=== PATIENT | male | born 1965 | race Caucasian/White ===

== ENCOUNTER 2019-01-31 08:10 | Emergency (ER) | payer BC ==
[~2019-01-31] VITALS: Ht 175.3 cm; Wt 84.0 kg
[2019-01-31] MEDS ORDERED: ketorolac trometh inj. 60 MG/2 ML VIAL IM ONE (08:15)
[2019-01-31] MEDS ORDERED: NAPR-56 PO (08:18)
[2019-01-31] MEDS ORDERED: CYCL-1 PO (08:18)
[2019-01-31 08:38] VITALS: BP 184/100
== END 2019-01-31 08:39 | disposition home or self-care (01) ==
LOC: ER 08:10
DX: S46.811A Strain of other muscles, fascia and tendons at shoulder and upper arm level, right arm, initial encounter (principal); M62.838 Other muscle spasm; F17.200 Nicotine dependence, unspecified, uncomplicated; Z79.899 Other long term (current) drug therapy; X58.XXXA Exposure to other specified factors, initial encounter; Y93.89 Activity, other specified; Y92.89 Other specified places as the place of occurrence of the external cause; Y99.8 Other external cause status
CPT/HCPCS: 96372; 99283; J1885

== ENCOUNTER 2019-02-21 07:22 | Emergency (ER) | payer BC ==
[~2019-02-21] VITALS: Ht 175.3 cm; Wt 81.8 kg
[~2019-02-21 07:22] MED LIST: CYCL-1 PO; NAPR-56 PO
[2019-02-21] MEDS ORDERED: LIDOcaine 1% w/EPI 1:200,000 injection 10mL vial IM ONE (07:45)
[2019-02-21] MEDS ORDERED: LIDOcaine 1% W/epiNEPHrine 1:200,000 10ml vial IJ ONE (07:50)
[2019-02-21] MEDS ORDERED: CEPH500C5 PO (07:58)
[2019-02-21] MEDS ORDERED: LISI40TA4 PO (07:58)
[2019-02-21] MEDS ORDERED: BACDS PO (07:58)
[2019-02-21 08:03] VITALS: BP 180/88
== END 2019-02-21 08:05 | disposition home or self-care (01) ==
LOC: ER 07:23
DX: L02.212 Cutaneous abscess of back [any part, except buttock and flank] (principal); I10 Essential (primary) hypertension; F17.210 Nicotine dependence, cigarettes, uncomplicated; F10.99 Alcohol use, unspecified with unspecified alcohol-induced disorder; Y90.9 Presence of alcohol in blood, level not specified
CPT/HCPCS: 10060; 99283

== ENCOUNTER 2021-07-13 14:09 | Emergency (ER) | payer BC ==
[~2021-07-13] VITALS: Ht 175.3 cm; Wt 72.7 kg
[~2021-07-13 14:09] MED LIST changes: +LISI40TA13 PO; -NAPR-56 PO
[2021-07-13 14:48] VITALS: BP 196/122
== END 2021-07-13 14:48 ==
LOC: ER 14:10
DX: I10 Essential (primary) hypertension (principal); F17.200 Nicotine dependence, unspecified, uncomplicated; Z72.89 Other problems related to lifestyle; Z79.899 Other long term (current) drug therapy
CPT/HCPCS: 99283

== ENCOUNTER 2021-08-15 05:44 | Emergency (ER) | payer BC ==
[~2021-08-15] VITALS: Ht 175.3 cm; Wt 77.3 kg
[2021-08-15 06:50] LABS: BASOPHILS # (AUTO) 0.1 X10'3 (0-0.2); BASOPHILS % (AUTO) 0.9 % (0-1); EOSINOPHILS # (AUTO) 0.1 X10'3 (0-0.9); EOSINOPHILS % (AUTO) 1.1 % (0-6); HEMATOCRIT 40.5 % (42.0-52.0); LYMPHOCYTES # (AUTO) 1.7 X10'3 (1.1-4.8); LYMPHOCYTES % (AUTO) 20.7 % (21-51); MEAN CORPUSCULAR HEMOGLOBIN 31.8 PG (27.0-31.0); MEAN CORPUSCULAR HGB CONC 34.7 g/dL (33.0-36.5); MEAN CORPUSCULAR VOLUME 91.9 FL (78-98); MEAN PLATELET VOLUME 7.4 FL (7.4-10.4); MONOCYTES # (AUTO) 0.7 X10'3 (0-0.9); MONOCYTES % (AUTO) 9.2 % (2-12); NEUTROPHILS # (AUTO) 5.6 X10'3 (1.8-7.7); NEUTROPHILS % (AUTO) 68.1 % (42-75); PLATELET COUNT 252 X10'3 (140-440); RED BLOOD COUNT 4.41 X10'6 (4.70-6.10); RED CELL DISTRIBUTION WIDTH 13.4 % (11.5-14.5); WHITE BLOOD COUNT 8.2 X10'3 (4.5-11.0)
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
[2021-08-15 07:08] LABS: ALANINE AMINOTRANSFERASE 41 U/L (12-78); ALBUMIN 3.6 G/DL (3.4-5.0); ALBUMIN/GLOBULIN RATIO 0.9 (1.1-1.5); ALKALINE PHOSPHATASE 80 IU/L (46-116); ANION GAP 13 (8-16); ASPARTATE AMINO TRANSFERASE 23 U/L (10-37); BILIRUBIN,TOTAL 0.5 MG/DL (0.1-1.0); BLOOD UREA NITROGEN 15 MG/DL (7-18); BUN/CREATININE RATIO 18.3 (5.4-32.0); CALCIUM 8.9 MG/DL (8.5-10.1); CHLORIDE 104 MMOL/L (99-107); CREATININE 0.82 MG/DL (0.60-1.10); GLUCOSE 99 MG/DL (70-104); SODIUM 141 MMOL/L (135-145); TOTAL CARBON DIOXIDE 24.1 MMOL/L (24-32); TOTAL PROTEIN 7.4 G/DL (6.4-8.2); eGFR > 90 ML/MIN
[2021-08-15 07:16] LABS: ETHANOL < 0.010 GM/DL (0.0-0.010)
[2021-08-15] MEDS ORDERED: LORazepam 1 MG tablet PO ONE (07:25)
[2021-08-15 07:51] LABS: CLARITY,URINE CLEAR (Clear); COLOR,URINE YELLOW (Yellow); GLUCOSE, URINE NEGATIVE (Neg); KETONES,URINE NEGATIVE (Neg); LEUKOCYTE ESTERASE ,URINE NEGATIVE (Neg); NITRITES, URINE NEGATIVE (Neg); OCCULT BLOOD,URINE NEGATIVE (Neg); PH,URINE 5.5 (4.8-8.0); PROTEIN,URINE NEGATIVE (Neg); UROBILINOGEN,URINE 0.2 E.U/dL (0.2-1.0)
[2021-08-15 07:58] LABS: UA COLLECTION TYPE URINAL
[2021-08-15 08:00] LABS: URINE AMPHETAMINE SCREEN POSITIVE (Neg); URINE BARBITUATE SCREEN NEGATIVE (Neg); URINE BENZODIAZEPINES SCREEN NEGATIVE (Neg); URINE CANNABINOID SCREEN POSITIVE (Neg); URINE COCAINE SCREEN NEGATIVE (Neg); URINE METHADONE SCREEN NEGATIVE (Neg); URINE OPIATE SCREEN NEGATIVE (Neg); URINE PHENCYCLIDINE SCREEN NEGATIVE (Neg)
[2021-08-15 08:09] VITALS: BP 172/112
[2021-08-15] MEDS ORDERED: QUET50TA PO (11:10)
[2021-08-15] MEDS ORDERED: PRAZ1CAP5 PO (11:15)
[2021-08-15] MEDS ORDERED: QUET200T PO (11:15)
--- NOTE | 2021-08-15 11:15 | NUR ---
PATIENT WAS INTERVIEWED/ASSESSED BY MENTAL HEALTH PROVIDER FOR PSYCHIATRIC NEEDS. PLAN FOR DC AND FOLLOW-UP WITH OUTPATIENT SERVICES.
== END 2021-08-15 11:29 | disposition home or self-care (01) ==
LOC: ER 05:45
DX: F24 Shared psychotic disorder (principal); G47.00 Insomnia, unspecified; F15.10 Other stimulant abuse, uncomplicated
CPT/HCPCS: 36415; 80053; 80305; 80320; 81003; 84443; 85025; 99285